=== PATIENT | female | born 1960 | race Caucasian/White ===

== ENCOUNTER 2016-05-01 12:23 | Emergency (ER) | payer OTHER ==
[~2016-05-01] VITALS: Ht 170.2 cm; Wt 73.2 kg
[~2016-05-01 12:23] MED LIST: ABILIFY2 MG PO; ALBUTEROL SULF8.5 GM IH; ASPIRIN E.C.81 M1 PO; BENADRYL ALLERG25 MG PO; BENADRYL12.5 MG PO; CALCIUM 600 +1 EAC1 PO; CALCIUM 600 +1 EACH PO; CALCIUM600 MG PO; CLONAZEPAM1 MG PO; DAZIDOX10 MG PO; DESYREL 150 MG150 MG PO; FENTANYL1 EAC1 TD; FISH OIL 1,0001 EACH PO; FISH OIL500 MG PO; IBUPROFEN200 M1 PO; KLONOPIN1 MG PO; LIDODERM 5% P1 PATCH TD; LIPITOR20 MG PO; LO-DOSE ASPIRIN81 M1 PO; LOPRESSOR25 MG PO; LOPRESSOR50 MG PO; MAXALT10 MG PO; METAMUCIL APP1 WAFER PO; METOPROLOL TART50 MG PO; MIRTAZAPINE15 MG PO; MULTIVITAMIN1 EAC2 PO; NEXIUM40 MG PO; NIASPAN,SLO-NI750 MG PO; NIASPAN500 MG PO; NYSTOP60 GM TP; OXYCODONE HCL PO; OXYCODONE HCL10 MG PO; PERCOCET 10/1 TABLET PO; POLYETHYLENE G255 GM PO; PROMETHAZINE HC25 M1 PO; PROVENTIL HFA6.7 GM IH; PROVENTIL2.5 MG/3 M IH; PULMICORT FLE180 MCG IH; PULMICORT180 MICROG IH; REGLAN5 MG PO; SAVELLA12.5 MG PO; SENNA LAXATIVE8.6 MG PO; SPIRIVA1 INHALATI IH; STOOL SOFTENER100 MG PO; TRAZODONE HCL150 MG PO; VALACYCLOVIR500 MG PO; VALTREX50 MG/ML PO; VITAMIN D1000 UNIT PO; VITAMIN D31000 UNIT PO
[2016-05-01 13:21] LABS: HEMATOCRIT 39.1 % (36.0-46.0); MCH 25.1 PG (29.0-34.0); MCHC 31.7 G/DL (30.0-36.0); MEAN PLAT.VOLUME 10.2 uM^3 (9.5-12.4); PLATELET COUNT 285 K/uL (156-360); RBC DIS.WIDTH-CV 18.1 % (11.8-14.6); RBC DIS.WIDTH-SD 50.9 % (39-53); RED BLOOD COUNT 4.95 M/uL (3.80-5.20); WHITE BLOOD COUNT 10.3 K/uL (4.1-10.2)
[2016-05-01 13:24] LABS: BASOPHIL COUNT 0.1 K/uL (0-0.1); EOSINOPHIL (%) 0.5 % (0-5); EOSINOPHIL COUNT 0.1 K/uL (0-0.3); IMMATURE GRANULOCYTE (%) 0.1 % (0.0-0.7); IMMATURE GRANULOCYTE COUNT 0.1 K/uL; LYMPHOCYTE COUNT 2.4 K/uL (1.0-2.8); MONOCYTE (%) 5.8 % (3-12); MONOCYTE COUNT 0.6 K/uL (0-0.8); NEUTROPHIL (%) 69.6 % (45-76); NEUTROPHIL COUNT 7.2 K/uL (1.8-6.4)
[2016-05-01 13:31] LABS: CHLORIDE 106 mEq/L (99-109); POTASSIUM 4.4 mEq/L (3.7-5.4); SODIUM 139 mEq/L (136-147)
[2016-05-01 13:33] LABS: GLUCOSE 85 mg/dL (70-99)
[2016-05-01 13:35] LABS: ANION GAP 11 MEQ/L (2-14)
[2016-05-01 13:37] LABS: GFR ESTIMATE (CALCULATED) > 59 mL/min/
[2016-05-01 13:38] LABS: UREA NITROGEN (BUN) 11 mg/dL (9-23)
[2016-05-01 13:42] LABS: TROP-I INTERPRETATION NEGATIVE; TROPONIN-I < 0.01 ng/mL (0.0-0.30)
[2016-05-01 14:28] VITALS: BP 118/87
== END 2016-05-01 14:48 | disposition home or self-care (01) ==
LOC: EME 12:23
PROVIDERS: Emergency Medicine
DX: R07.89 Other chest pain (principal); R11.0 Nausea; R06.02 Shortness of breath; G89.29 Other chronic pain; M54.9 Dorsalgia, unspecified; J45.909 Unspecified asthma, uncomplicated; I10 Essential (primary) hypertension; E78.5 Hyperlipidemia, unspecified; Z79.82 Long term (current) use of aspirin; Z79.891 Long term (current) use of opiate analgesic; F17.200 Nicotine dependence, unspecified, uncomplicated
CPT/HCPCS: 71010; 80048; 84484; 85025; 93005; 99281; 99284